=== PATIENT | male | born 1955 | race African-American/Black ===

== ENCOUNTER 2019-11-05 03:14 | Emergency (ER) | payer BC, OTHER ==
[~2019-11-05] VITALS: Ht 182.9 cm; Wt 112.0 kg
[2019-11-05 05:30] VITALS: BP 174/99
== END 2019-11-05 06:38 | disposition home or self-care (01) ==
LOC: ER 03:14 → EDBD 03:14 → ER 06:38
DX: S39.012A Strain of muscle, fascia and tendon of lower back, initial encounter (principal); Z88.8 Allergy status to other drugs, medicaments and biological substances; X58.XXXA Exposure to other specified factors, initial encounter; Y93.89 Activity, other specified; Y99.8 Other external cause status; Y92.89 Other specified places as the place of occurrence of the external cause
CPT/HCPCS: 72131